=== PATIENT | female | born 1965 | race Caucasian/White ===

== ENCOUNTER 2016-08-01 05:30 | Day surgery (SDC) | payer OTHER ==
--- NOTE | 2016-07-31 11:57 | PCM.ANEPRE ---
Anesthesia Pre-Op Review Reason for Review: STOP BANG 12/11 Anesthesia Recommendations: Proceed with Procedure Additional Comments 50 yo female for lap total hysterectomy and sling, possible vaginal hysterectomy. Patient has BMI 36, STOPBANG score of 6/8, no hx sleep study. Other comorbidities include HTN, hypothyroidism. Patient has hx of several abdominal surgeries, and surgery is expected to be complicated with high risk of conversion to open per surgeon note. Patient had severe PONV resulting in suture dehiscence following a prior surgery. Proceed with DOS evaluation of airway, SAL orders, and PONV prophylaxis. Chart Reviewed by: Jey Sanchez MD Jul 31, 2016 11:57
[2016-08-01] VITALS (17 sets, daily range): BP systolic 125–161; BP diastolic 2–118; PULSE 69–88; RESP 11–20; O2SAT 92–100
[~2016-08-01] VITALS: Ht 172.7 cm; Wt 109.8 kg
[~2016-08-01 05:30] MED LIST: LEVO125T6 PO; LISI10TA PO; MEDR10TA9 PO; ZOLP6.252 PO
[2016-08-01] MEDS ORDERED: Morphine PF 1 mg/mL 10 mL Inj ONE (05:31)
[2016-08-01] MEDS ORDERED: Dexamethasone 4 mg/mL Inj ONE (05:31)
[2016-08-01] MEDS ORDERED: Ondansetron 2 mg/mL 2 mL Inj ONE (05:31)
[2016-08-01] MEDS ORDERED: Rocuronium 10 mg/mL 5 mL Inj ONE (05:31)
[2016-08-01] MEDS ORDERED: Ketamine 10 mg/mL 20 mL Inj ONE (05:31)
[2016-08-01] MEDS ORDERED: MetoCLOpramide 5 mg/mL 2 mL Inj ONE (05:31)
[2016-08-01] MEDS ORDERED: Propofol 10,000 mCg/mL 20 mL Inj ONE (05:31)
[2016-08-01] MEDS: Lactated Ringer's 1,000 ML IV SCH ×3 (05:42→16:58)
[2016-08-01] MEDS ORDERED: CeFAZolin 2 Gm/50 mL D5W Duplex Bag IV ONE (05:50)
[2016-08-01 06:58] LABS: BASOPHILS % (AUTO) 0.7 % (0-3); EOSINOPHILS % (AUTO) 1.6 % (0-5); MONOCYTES % (AUTO) 7.8 % (4-12); Mean Corpuscular Hemoglobin 20.8 pg (27.0-35.0); Mean Corpuscular Volume 70.3 fL (81-100); NEUTROPHILS % (AUTO) 59.5 % (40-74); Platelet Count 339 bil/L (150-400)
--- NOTE | 2016-08-01 07:25 | PCM.HPANE ---
Patient Data Surgeon Admitting Provider: Attending Provider:Zakia Palma MD Primary Care Physician:Donna Patel DO Other Provider:Caitlin Munozingham Anesthesia Reason for Visit Mullerian Uteran Abnormality,Abn Vaginal Bleeding Ht/WT & BMI Height (Feet): 5 Height (Inches): 8 Weight (Kilograms): 109.9 Body Mass Index 36.00 Allergies Coded Allergies: erythromycin base (Verified Allergy, Severe, rash, 07/31/16) sulfacetamide (Verified Allergy, Severe, respiratory difficulty, 07/31/16) Past Anesthesia History Anesthesia History: Positive for:: Anesthesia Reactions (PONV THAT CAUSED DEHISCENCE OF ABD/PELVIC INCISION), Denies:: Malignant Hyperthermia Diabetes History Hx Diabetes?: No MRSA MRSA: No Medications Hypertension Medication: Yes (LISINOPRIL) Home Meds Incl Beta Jaida: No Reported Medications Zolpidem ER (Ambien CR)6.25 Mg Lwfjhq15.5 Mg PO HS PRN For Insomnia Ref 0 07/31/16 Lisinopril 10 Mg [id number] Mg PO DAILY 30 Days Ref 0 07/31/16 Discontinued Reported Medications Medroxyprogesterone 10 Mg [id number] Mg PO TID 07/31/16 Levothyroxine 125 Mcg [id number] Mcg PO DAILY For Thyroid Replacement Ref 0 07/31/16 History History of ENT Problems?: No Denture Type: Full- Upper Full- Lower Hx of Heart Problems?: Yes Cardiovascular History: Positive for:: Hypertension Denies:: Heart Murmur Hx of Respiratory Problem?: Yes Respiratory History: Denies:: Use of C-PAP Machine (SNORES) Hx Neurologic Problems?: Yes Hx of GI Problems?: No Hx of Problems?: Yes Female Hx: Denies:: Currently (NEG PREG TEST) Skin History: Denies:: History Skin Disorders? Pressure Ulcers Hx Musculoskeletal Problems?: No Hx of Psycho/Social Problems?: No Hx Surgeries?: Yes (C/S,LAP OVARIAN CYSTECTOMY) Hx Any Other Health Problems?: Yes Other History: Positive for:: Thyroid Disease Denies:: Cancer Endocrine Disease Hospitalization History Blood Transfusions: Denies:: Blood Transfusions Hx Diabetes: No Smoking Status: Never Smoker Stop/Bang Treated for Sleep Apnea?: No Do You Have a CPAP Machine?: No S-Snoring: Do You Snore Loudly: Yes T-Tired: feel tired, fatigued: Yes O-Obsered: Observed not breath: Yes P-Blood Pressure: treated: Yes B- Body Mass Index > 35 kg/m2: Yes A- Age over 50: No N- Neck Large Circumference: Yes G- Gender Male: No SAL Total Score: 6 SAL Risk Assessment: Low Risk, <3 Yes Risk Assessment Category Category 1A: Patient has history of documented sleep apnea, and HAS NOT received any narcotic, sedative or anesthesia administration during this stay. Category 1B: Patient has history of documented sleep apnea, and HAS received any narcotic , sedative or anesthesia administration during this stay Category 2: Patient has SUSPECTED Obstructive Sleep Apnea, and HAS received any narcotic , sedative or anesthesia administration during this stay. Category 3: Patient has SUSPECTED Obstructive Sleep Apnea and HAS NOT received narcotic, sedative or anesthesia administration during this stay. Category 4: Outpatient in Procedural Areas with known sleep apnea or who screen positive for High Risk via the STOP/BANG questionnaire. Exam Exam Vital Signs Vital Signs Date Time Temp Pulse Resp B/P Pulse Ox O2 Delivery O2 Flow Rate FiO2 08/01/16 06:02 140/98 08/01/16 06:01 152/107 08/01/16 06:00 35.9 77 18 161/118 97 Room Air General Appearance: Oriented X3 HEENT/AIRWAY: MP 2 Lungs: Normal Air Movement Heart: Regular Rate/Rhythm Meds/Labs/Diagnostics Admission Meds Current Medications Lactated Ringer's (Lr) 1,000 ml @ 120 mls/hr Q8H20M IV Last administered on t 05:42; Start 08/01/16 at 05:00; Stop 08/01/16 at 13:19 Labs Test 08/01/16 06:43 White Blood Count 4.5th/mm3 (3.8-10.1) Red Blood Count 4.27mil/mm3 (3.90-5.20) Hemoglobin 8.9g/dL (12.0-15.6) Hematocrit 30.0% (35.0-46.0) Mean Corpuscular Volume 70.3fL (81-100) Mean Corpuscular Hemoglobin 20.8pg (27.0-35.0) Mean Corpuscular Hemoglobin Concent 29.7% (32.0-37.0) Red Cell Distribution Width 16.1% (12.3-15.4) Platelet Count 339bil/L (150-400) Neutrophils (%) (Auto) 59.5% (40-74) Lymphocytes (%) (Auto) 30.2% (14-46) Monocytes (%) (Auto) 7.8% (4-12) Eosinophils (%) (Auto) 1.6% (0-5) Basophils (%) (Auto) 0.7% (0-3) Sodium Level 137mEq/L (134-144) Potassium Level 4.1mEq/L (3.5-5.2) Chloride Level 104mEq/L (97-108) Carbon Dioxide Level 21mmol/L (18-29) Blood Urea Nitrogen 9mg/dL (6-24) Creatinine 0.76mg/dL (0.57-1.00) Estimat Glomerular Filtration Rate 116mL/min (>59) Glucose Level 102mg/dL (60-99) Calcium Level 8.5mg/dL (8.5-10.1) Plan Impression Patient chart reviewed, patient interviewed and anesthestic plan with risks, benefits, and alternatives discussed, and informed consent obtained. NPO Status: 1700 07/31/16 ASA Physical Status: ASA2 Mod Systemic Disease Anesthetic Support Modalities: Arterial Line Anesthetic Plan: GA, SAB Bene/Risks/Altern/Consents: Yes HP Complete Prior to Induction: Yes Moe Mccain MD Aug 01, 2016 07:25
[2016-08-01] MEDS ORDERED: Bupivacaine-MPF 0.25%/EPI 30 mL Inj INJ ONE ×2 (08:00→12:43)
[2016-08-01] MEDS ORDERED: Iopamidol-300 50 mL Inj IV ONE (08:00)
[2016-08-01] MEDS: CeFAZolin Inj 2 GM in IV Premix 1 EACH IV SCH ×2 (10:27→12:26)
[2016-08-01] MEDS ORDERED: Lactated Ringer's 1,000 ML IV SCH (10:29)
[2016-08-01] MEDS ORDERED: Lactated Ringer's 500 ML IV PRN (10:29)
[2016-08-01] MEDS ORDERED: Phenylephrine 10,000 mCg/mL Inj IVPUSH PRN (10:30)
[2016-08-01] MEDS ORDERED: Dexamethasone 4 mg/mL Inj IVPUSH PRN (10:30)
[2016-08-01] MEDS ORDERED: fentaNYL-PF 50 mCg/mL 2 mL Inj IVPUSH PRN (10:30)
[2016-08-01] MEDS ORDERED: MetoCLOpramide 5 mg/mL 2 mL Inj IVPUSH PRN ×2 (10:30→14:30)
[2016-08-01] MEDS ORDERED: Ondansetron 2 mg/mL 2 mL Inj IVPUSH PRN ×2 (10:30→14:30)
[2016-08-01] MEDS ORDERED: EPHEDrine Sulfate 50 mg/mL Inj IVPUSH PRN (10:30)
[2016-08-01] MEDS ORDERED: Labetalol 5 mg/mL 4 mL Inj IV PRN (10:30)
[2016-08-01] MEDS ORDERED: Lactated Ringer's 1,000 ML IV ONE ×2 (10:30→14:04)
[2016-08-01] MEDS ORDERED: HYDROmorphone 1 mg/mL Inj IVPUSH PRN (10:30)
[2016-08-01] MEDS ORDERED: Alum-Mag Hydrox-Simeth 30 mL Suspension PO PRN (14:30)
[2016-08-01] MEDS ORDERED: oxyCODONE-Acetamin 5-325 mg Tablet PO PRN (14:30)
[2016-08-01] MEDS ORDERED: Acetaminophen IV 1,000 MG in IV Premix 1 EACH IV PRN (14:30)
[2016-08-01] MEDS ORDERED: Senna-Docusate 8.6-50 mg Tablet PO PRN (14:30)
--- NOTE | 2016-08-01 15:07 | PCM.ANEP1 ---
Post Anesthesia Phase 1 PACU Phase 1 Assessment Vital Signs Vital Signs Date Time Temp Pulse Resp B/P Pulse Ox O2 Delivery O2 Flow Rate FiO2 08/01/16 14:54 81 13 136/88 98 Nasal Cannula 3 08/01/16 14:48 11 97 08/01/16 14:44 80 11 128/77 95 Room Air 08/01/16 14:20 86 14 128/73 100 Simple Mask 10 08/01/16 14:15 88 16 133/82 99 Simple Mask 10 08/01/16 14:10 36.6 86 15 127/86 99 Simple Mask 10 Anesthetic Administered: GA, SAB Level of Alertness: Awake, talking Pain: No Nausea or Vomiting: No Airway Device: Oralpharangeal Airway Oxygen Delivery: Room Air Lungs: Normal Air Movement Dermatome Level: T10 (Umbilicus) Moe Mccain MD Aug 01, 2016 15:07
--- NOTE | 2016-08-01 15:07 | PCM.ANEP2 ---
Post Anesthesia Evaluation ASA/CMS Post Anesthesia VS in Patient's Normal Range?: Yes Resp Stable; Airway Patent?: Yes CV Function & Hydration Stable: Yes Mental Status Recovered?: Yes Pain control Satisfactory?: Yes N/V Control Satisfactory?: Yes Moe Mccain MD Aug 01, 2016 15:07
[2016-08-01] MEDS: Dextrose 5% Lactated Ringer's 1,000 ML IV SCH ×2 (17:41→22:26)
[2016-08-01 18:17] LABS: BASOPHILS % (AUTO) 0 % (0-3); EOSINOPHILS % (AUTO) 0 % (0-5); MONOCYTES % (AUTO) 3.8 % (4-12); NEUTROPHILS % (AUTO) 92.3 % (40-74); Platelet Count 362 bil/L (150-400)
[2016-08-01] MEDS: Senna-Docusate 8.6-50 mg Tablet PO SCH (19:47)
--- NOTE | 2016-08-01 20:33 | NUR ---
Post op Patient received to room 1025 s/p lap hysterectomy. Pt denied pain upon arrival. 4 lap sites noted to abdomen and 2 lap sites noted to pubis area. Dermabond glue noted to surgical sites. No nausea. Pt oriented to room taking ice chips.
[2016-08-02 00:45] VITALS: BP 112/74; PULSE 62; RESP 18; O2SAT 99
--- NOTE | 2016-08-02 02:32 | NUR ---
Painful Right Eye Pt c/o pain in Rt eye. Redness and swelling present. Hot compress given and saline flush to rinse eye. Pt states that she came out of Sx with her eye hurting her. Unable to tell in vision is worsened as her vision is blurry at baseline. Light sensitive. Pupils Equal and round. Pain medication for ABD seems to help pain in eye as well. Care continues
[2016-08-02 04:52] VITALS: BP 114/79; PULSE 60; RESP 16
--- NOTE | 2016-08-02 06:00 | NUR ---
Tesfaye and Vag Packing Removed Tesfaye Catheter and Vaginal Packing Removed at 0600 as ordered by MD. Minimal Serosanguineous discharge on vaginal packing noted. No discharge on peripad. Slightly painful per pt while packing was being removed but pain subsided once complete. Toradol and APAP give throughout the night to keep pain at a tolerable level. Care continues
[2016-08-02 06:12] LABS: BASOPHILS % (AUTO) 0.1 % (0-3); EOSINOPHILS % (AUTO) 0 % (0-5); MONOCYTES % (AUTO) 6.4 % (4-12); Mean Corpuscular Hemoglobin 20.7 pg (27.0-35.0); Mean Corpuscular Volume 71.8 fL (81-100); NEUTROPHILS % (AUTO) 81.5 % (40-74); Platelet Count 318 bil/L (150-400)
[2016-08-02] MEDS: Dextrose 5% Lactated Ringer's 1,000 ML IV SCH ×2 (06:26→08:15)
[2016-08-02] MEDS: Senna-Docusate 8.6-50 mg Tablet PO SCH (08:15)
--- NOTE | 2016-08-02 10:54 | PCM.DIGYN ---
Surgical Discharge Instruction Dates of Hospitalization Date of Hospital Admission Providers Admitting Physician: Primary Care Physician: Donna Patel DO Attending Physician: Zakia Palma MD Diagnosis at Time of Discharge Diagnosis at time of discharge Duplicated cervices, single uterus, mullerian anomaly Problems: Diet Discharge Diet: No restrictions Activity Discharge Activity-General: Try not to overdue, Balance rest and activity, Activity as pain allows, No lifting >10 pounds for 4-6 weeks, No driving while taking narcotic Dressing and Incisional Care Dressing Care: Keep dressing clean, dry & intact Hygiene: May shower, NO bathtub, hot tub or whirlpool Additional Instructions Discharge Instructions You have had an uncomplicated longitudinal vaginal septum take down, total laparoscopic hysterectomy, and transvaginal taping. Please call with any signs or symptoms of infection including severe pain, temperature greater than 100.5 degrees, malodorous vaginal discharge or heavy vaginal bleeding. Please also notify us if you are unable to void urine. Follow Up Plan Follow-up Provider (F9): Zakia Palma MD Follow-up appointment: Weeks (2) Call your provider for: Fever, Chills, Heavy vaginal bleeding, Wound redness, Increasing pain Zakia Palma MD Aug 02, 2016 10:54
--- NOTE | 2016-08-02 11:31 | DIS ---
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 2. Hypertension on lisinopril. 3. Hypothyroidism. 4. Longitudinal vaginal septum. DISCHARGE DIAGNOSES: 1. Duplicated cervix, single uterus.. 2. Hypertension on lisinopril. 3. Hypothyroidism. 4. Longitudinal vaginal septum. PROCEDURES PERFORMED: 1. Longitudinal vaginal septum transsection. 2. Total laparoscopic hysterectomy. 3. Lysis of adhesions. 4. Transvaginal taping. REASON FOR ADMISSION: This 50-year-old -0-0-1 female presented to our clinic in May for evaluation and treatment of heavy menstrual bleeding. She had had severe chronic ongoing bleeding with significant anemia associated with this, treated with Provera. After discussing treatment options with the patient in clinic, she strongly desired to proceed with a hysterectomy. 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 Because of this an MRI was completed preoperatively which confirmed didelphys uterus and she was referred to urology for surgical planning for preoperative stent placement. Risks, benefits, and alternatives were discussed with her in our clinic and she elected to proceed with surgery. HOSPITAL COURSE: The patient was admitted on the to undergo the above-stated procedure. Urology was present for stent placement at the start of the procedure and her surgery was overall uncomplicated with the finding of a single uterus but duplicated cervices and vagina. Please see the operative report for full details regarding the surgery. Postoperatively she did well. On the evening of postoperative day #zero hemoglobin was collected as preoperatively she was noted to be quite anemic with a hemoglobin of 8.9. On postoperative day #zero hemoglobin was noted to be 9.4. By postoperative day #1 this had decreased to 8.0, which was thought to be appropriate following her surgery. By postoperative day #1, her pain was well controlled. She was tolerating a regular diet, voiding, and ambulating well on her own after her Tesfaye catheter was removed. Passing flatus. Her pain was well controlled. At this point she was deemed stable for discharge PHYSICAL EXAMINATION: On the day of discharge her temperature is 36.5, pulse is 60, respiratory rate 16, blood pressure is 114/79. In general, she is awake, alert, and oriented, in no acute distress, lying comfortably in the bed. Her abdomen is soft, appropriately tender, and nondistended. Her incisions are clean, dry, and intact, with Dermabond on top. Her extremities show no tenderness, no clubbing or edema. LABORATORY DATA: On the day of discharge shows a white count of 12.3, hemoglobin of 8.0, platelets of 318. DISCHARGE INSTRUCTIONS: The patient is advised to remain at pelvic rest for six weeks including no tampons, douching, or intercourse. She was asked to call with any signs or symptoms of infection including severe pain, temperature greater than 100.5 degrees, malodorous vaginal discharge, or bleeding greater than one pad per hour. As she had had a splint placed she was also asked to call or return with any voiding dysfunction symptoms. DISCHARGE MEDICATIONS: Included Percocet 5/325 mg 1-2 tablets p.o. q.4 h. p.r.n. pain, dispensed #30, plus ibuprofen 800 mg p.o. q.8 h. p.r.n. pain. She is also continued on her home medications as previously prescribed. All questions and concerns of the patient were answered prior to this discharge. She was deemed stable for discharge on postoperative day #1. [place]
--- NOTE | 2016-08-02 11:49 | NUR ---
Discharge patient discharged at 1145hrs today with spouse. patient able to void on own after patterson was removed. patient up ambulating in the gonzalez with FWW. tolerated well. I reviewed discharge instructions with patient and spouse; medication review, lifting and mobility restrictions, and follow-up care. patient verbalized understanding and agreed with plan of care.
--- NOTE | 2016-08-02 13:27 | OP ---
[address] [address] OPERATIVE REPORT PATIENT: FLO MARINO : 1965 MR#: [id number] ADMIT: 08/01/2016 JOB ID: [id number] DATE OF SURGERY: 08/01/2016 PREOPERATIVE DIAGNOSIS(ES): 1. A 50-year-old female with menorrhagia. 2. Didelphys uterus. 3. Hypertension on lisinopril. 4. Hypothyroidism. POSTOPERATIVE DIAGNOSIS(ES): 1. A 50-year-old female with menorrhagia. 2. Duplicated cervices, single uterus, Mullerian anomaly. 3. Hypertension on lisinopril. 4. Hypothyroidism. PROCEDURE PERFORMED: 1. Longitudinal vaginal septum resection. 2. Lysis of adhesions. 3. Total laparoscopic hysterectomy with bilateral salpingectomy. 4. Transvaginal taping. 5. Cystoscopy SURGEON: Zakia Palma MD NEUROLOGY DIRECTOR: Roger Lin MD, who was necessary for retraction and assistance in this complicated case. ANESTHESIA: General endotracheal anesthesia. ESTIMATED BLOOD LOSS: 100 cc. FLUID REPLACEMENT: 2000 cc of crystalloid. URINE OUTPUT: 600 cc. Findings: Duplicated cervices, with rudimenteray right cervix, 12 cm size uterus, normal ovaries and fallopian tubes normal bladder, adhesions from the anterior abdominal wall to the omentum, longitudinal vaginal septum, Complications: None apparent INDICATIONS: This is a 50-year-old -0-0-1 female presented to our clinic after being referred for heavy vaginal bleeding. She had significant anemia related to her abnormal bleeding and her primary care provider had started her on Provera. She had a known uterine Mullerian anomaly and after discussing options for her she elected to proceed with a hysterectomy of presumed didelphys uterus. Risks, benefits, and alternatives were discussed with her in depth including a large risk of conversion to a laparotomy to complete the procedure, as well as risk of injury to the bowel or bladder or ureters given her anatomic distortion. She was also offered referral to a speech therapy director versus a surgeon who could do robotic surgery to potentially complete the surgery laparoscopically and she elected to continue with our care. A MRI was completed preoperatively for surgical planning. An attempted in-office EMB was not successful. The patient was referred to Urology to discuss intraoperative stent placement to help identify the ureters and was consented to proceed with this as well. PROCEDURE: The patient was brought to the operating room, where an arterial line was placed per anesthesia recommendations. General endotracheal anesthesia was administered and she was typed and crossed for 2 units as her starting hemoglobin was 8.[address] Sneed presented to the operating room, where she did place stents intraoperatively. Please see her dictated report for details regarding this. After this was completed, the patient was in dorsal lithotomy position and prepped and draped in appropriate sterile fashion for the surgery. Examination of the cervix revealed a longitudinal vaginal septum extending from the duplicated cervices down to the vaginal introitus. Using a LigaSure device this was cauterized and transected up to the level of her duplicated cervices. Her right cervix was noted to be more rudimentary in appearance, so a [employer] uterine manipulator was then placed on her left cervix using a small cup and her uterus was sounded to what was noted to be 11 cm. After this portion was completed, attention was then turned abdominally. Given the patient's surgical history, which had included a vertical section and a vertical midline incision for laparotomy with ovarian cystectomy, the decision was made to proceed with a left upper quadrant entry to avoid any adhesions. This was attempted three times and was not successful due to high intraoperative pressure with a Veress needle, so a direct visualized entrance was then attempted with what looked to be dense bowel adhesions, so this was then removed from the left upper quadrant and the decision was made to go supraumbilically 2 cm above the umbilicus, where direct visualized entry was then completed into the abdominal cavity. Intra-abdominal placement was confirmed and the abdomen was then insufflated with appropriately rising CO2 pressures. Following this, a 2nd port was placed in the left lower quadrant and a 3rd was placed in the right lower quadrant, so she had four 5 mm ports placed including the left upper quadrant initial port for entry, which was readjusted to confirm appropriate placement. Examination of the pelvis revealed a single uterus that was enlarged and there was not a 2nd didelphys uterus that was identified as suspected preoperatively. She did have adhesions along the midline in the upper abdominal wall at the site of her previous vertical incisions. These were taken down with the Thunderbeat device with good hemostasis noted following this. The patient was then placed in Trendelenburg position and using the Thunderbeat, starting with the left side, her fallopian tube was elevated away from the ovary and the mesosalpinx was transected to the level of the cornua. Her utero-ovarian ligament was then cauterized and transected, then the round ligament was also transected using the Thunderbeat device. The anterior and posterior leaves of the broad ligament were then skeletonized and taken down to the level of the uterine isthmus and a bladder flap was then created across the lower uterine segment. The skeletonized uterine artery on the left side was then cauterized and attention was then turned to the right half of the uterus. Using the same procedure, the right fallopian tube was elevated away from the ovary and was transected along the mesosalpinx to the level of the cornua and the utero-ovarian ligament was then transected as well as the round ligament and the anterior posterior sheaths of the broad ligament were then isolated and brought down, appropriately skeletonizing the uterine arteries, and the bladder flap was then completed across the lower uterine segment connecting with the left-sided dissection. The right uterine arteries which had been skeletonized were then cauterized and appropriate blanching of the uterus was noted. The uterine arteries were then cauterized. The left ureter was identified prior to start of the procedure and was noted to be well away from the operating field. The stent that had been placed preoperatively did fall out prior to starting the laparoscopic portion of the procedure. The right ureter was not identified due to obscuring bowel, but the area of dissection was thought to be well away from the ureter. After this, using the Thunderbeat device, the colpotomy was then made all the way around the ring of the [employer] uterine manipulator and the uterus and fallopian tubes were then removed from the vagina. The abdomen was irrigated and the vaginal cuff was then closed vaginally using a running locking stitch of 2-0 Vicryl. After completion of this, the 2nd right cervices was examined and noted to be rudimentary in appearance. Examination was completed laparoscopically as well while investigating the cervix vaginally and a sound was placed which confirmed that it was a rudimentary cervix that ended blindly as the uterine sound could be seen at the top of the cervix abdominally, with no further uterine tissue identified. There was noted to be a 1 cm vaginal cuff defect near the right rudimentary cervix, which was then closed with two stitches of 2-0 Vicryl in a [id number] fashion. Because her symptoms were thought to be not related to her rudimentary cervix and given the fact that her ureter was non visualized on the right side with anatomic distortion, the cervix was left in situ. After completion of this, attention was turned to the planned sling placement. After injection with local anesthetic along the urethral meatus, blunt and sharp dissection was carried out until reaching the pubic ramus. The initial plan was to proceed with a transvaginal taping,over concern for her Mullerian anomaly, the decision was made to switch to an obturator taping in case there were any further not previously identified anomalies of her bladder, a [employer] TVT-O was brought out. After two attempts at placing this, due to her obesity and size it was thought that this sling trocar was not long enough to complete the obturator type procedure, and so this was discontinued and was changed back to the planned TVT using a [employer] Advantage sling. After injection with local anesthetic along the planned trocar path each trocar was directed lateral to the urethra 1.5 cm lateral to the midline and following the pubic bone. exiting above the pubic bone above the mons. The catheter was then removed and a cystoscopy confirmed absence of any bladder injuries and bilateral patent ureters were identified on cystoscopy. The mesh was then appropriately tensioned and released and the mucosa was then closed over the sling. Attention was then again turned to the abdomen where hemostasis was confirmed. The insufflation was released from the abdomen and the patient was given two deep breaths. The skin was then closed with 4-0 Monocryl with Dermabond on top. A Tesfaye catheter was then placed. The vagina was packed with 2 inch packing strip coated with Premarin cream. The patient was brought to PACU in stable condition. All sponge, needle, instrument counts were correct at the completion of the procedure. Dr. Lin's assistance was necessary for exposure and intraoperative surgical assistance due to the complicated nature of the case. [place]
--- NOTE | 2016-08-03 00:31 | OP ---
[address] [address] OPERATIVE REPORT PATIENT: FLO MARINO : 1965 MR#: [id number] ADMIT: 08/01/2016 JOB ID: [id number] DATE OF SURGERY: 08/01/2016 PREOPERATIVE DIAGNOSIS(ES): This is a patient with uterine didelphys, scheduled for a hysterectomy per Dr. Palma. Urology was asked for placement of ureteral catheters bilaterally to aid in ureteral identification. POSTOPERATIVE DIAGNOSIS(ES): This is a patient with uterine didelphys, scheduled for a hysterectomy per Dr. Palma. Urology was asked for placement of ureteral catheters bilaterally to aid in ureteral identification. Please see Dr. Palma's note for the bulk of the operative note. This pertains only to the urologic portion initially with catheter placement. PROCEDURE: Cystoscopy with right-sided, and also left-sided ureteral catheter placement. SURGEON: Jesenia Sneed MD ANESTHESIA: General PROCEDURE IN DETAIL: After appropriate informed consent was obtained, the patient was brought to the operating room. SCDs were placed. Adequate general anesthesia was induced. She was carefully placed in dorsal lithotomy position. All pressure points were carefully padded. Cleaned, prepped, and draped in the usual sterile fashion. Rigid scope was introduced in the patient's bladder which was noted to be normal in appearance. First, the right-sided ureteral orifice was identified. It was cannulated with an open-ended catheter and a wire was advanced under fluoroscopic guidance into good position in the renal pelvis. We then advanced an open-ended 6-[place] ureteral catheter over the wire with the proximal end ending near the ureteropelvic junction. Wire was removed. The scope was removed, leaving the ureteral catheter in place. We turned our attention to the left ureteral orifice which was likewise orthotopic and again easy to cannulate. Hydrophilic-tipped wire was placed up into the renal pelvis and the 6-[place] open-ended was placed over the wire under fluoroscopic and direct visual guidance into good position again up to near the ureteropelvic junction. We then replaced a Tesfaye catheter sterilely and tied the ureteral catheters to the externalized portion of the Tesfaye catheter, to aid in maintenance of position. The patient tolerated this portion of the procedure very well and then was turned over to Dr. Palma for the bulk of the case. Please refer to her note for the entirety of her operation.
--- NOTE | 2016-08-05 14:13 | PATH ---
SURGICAL PATHOLOGY Attending Physician:Zakia Palma, CASE STATUS: Signed Out PATIENT NAME: FLO MARINO PID: [id number] : 1965 DATE COLLECTED:08/01/2016 23:14 SPECIMEN: Uterus +/- tubes/ovaries, except neoplastic, prolapse CLINICAL HISTORY: MULLERIAN UTERINE ABNORMALITY, ABNORMAL VAGINAL BLEEDING 1). UTERUS, CERVIX AND BILATERAL TUBES FINAL DIAGNOSIS: Uterus with Bilateral Fallopian Tubes: Multiple leiomyomas, myometrium. Inactive endometrium, negative for atypia. Focal endometriosis, left fallopian tube. Right fallopian tube unremarkable. ICD10 D25.9 GROSS DESCRIPTION: The specimen is received in formalin, labeled with the patient's name, sublabeled as uterus, cervix, and bilateral tubes, and consists of a uterus (272 g, 6.0 cm AP, 12.5 cm SI, 7.8 cm ML) with attached fimbriated fallopian tubes (right: length-5.0 cm, diameter-0.3 cm; left: length-4.2 cm, diameter-0.2 cm). The inferior uterine body/superior endocervical canal is received partially sliced through the posterior aspect. The ovaries are absent. The cervix (1.8 cm AP, 2.3 cm ML) has a transverse os and patent endocervical canal lined with multiple cystic cavities (0.1 cm-1.1 cm) containing clear colorless gelatinous material. The endometrium (average thickness-0.2 cm) is srivastava-pink smooth and flat. The myometrium (thickness-2.8 cm) is srivastava and contains multiple solid firm white whorled homogenous well-circumscribed nodules (0.5 x 0.3 x 0.3 cm-3.1 x 2.2 x 2.0 cm).The largest nodule has a hemorrhagic soft center. The serosa is srivastava smooth and shiny. The fallopian tubes have gant-purple smooth shiny serosa and unremarkable srivastava-white lumens. Section code: (A) anterior cervix; (B) posterior cervix; (C, D) anterior endomyometrium; (E, F) posterior endomyometrium; (G) largest nodule, serially sectioned, field representatives director; (H) right fallopian tube, serially sectioned, field representatives director; (I) right fimbria, bivalved, entirely submitted; (J) left fallopian tube, serially sectioned, field representatives director; (K) left fimbria, bivalved, entirely submitted. 08/02/16 ICD-9 CODES: CPT CODES: 09142 Electronically Signed Out Darryl Villavicencio MD [facility] [address], [place] [address] Technical component performed at [facility], [address], [place], [address]
== END 2016-08-02 12:42 | disposition home or self-care (01) ==
LOC: SAS 05:30 → OSC 16:44 → SAS 08-02 12:42
PROVIDERS: ATTEND Obstetrics & Gynecology
DX: D25.9 Leiomyoma of uterus, unspecified (principal); N80.2 Endometriosis of fallopian tube; N92.0 Excessive and frequent menstruation with regular cycle; Q51.820 Cervical duplication; Q52.10 Doubling of vagina, unspecified; Q51.818 Other congenital malformations of uterus; N39.3 Stress incontinence (female) (male); I10 Essential (primary) hypertension; E03.9 Hypothyroidism, unspecified; E66.9 Obesity, unspecified; Z68.36 Body mass index [BMI] 36.0-36.9, adult
CPT/HCPCS: 36415; 52005; 57288; 58573; 76000; 80048; 85025; 86922; C1771; J0690; J1100; J2250; J2274; J2405; J2765; J7120